=== PATIENT | female | born 1980 | race Caucasian/White ===

== ENCOUNTER 2018-12-22 14:58 | Outpatient (CLI) | payer OTHER | END 2018-12-22 23:59 | disposition home or self-care (01) | LOC: CVU 14:58 | PROVIDERS: ATTEND Family Medicine | DX: R07.89 Other chest pain (principal); R94.31 Abnormal electrocardiogram [ECG] [EKG]; R78.5 Finding of other psychotropic drug in blood; Q21.1 Atrial septal defect | CPT/HCPCS: 93306 ==

== ENCOUNTER 2019-05-04 10:09 | Emergency (ER) | payer OTHER ==
[~2019-05-04] VITALS: Ht 170.2 cm; Wt 95.1 kg
[2019-05-04] MEDS ORDERED: SODIUM CHLORIDE FLUSH 10ML SYR IVF ONE (10:30)
--- NOTE | 2019-05-04 10:43 | NUR ---
PT HERE WITH C/O LEFT SIDED BACK/FLANK PAIN. PT STATES HX KIDNEY STONES, PT TEARFUL AND STATES 10/10 PAIN. PT DRESSED IN GOWN AND ON MONITOR, PIV ESTABLISHED AND LABS DRAWN. PT EDUCATED ON NEED FOR UA. ROOM AIR, CALL LIGHT WITHIN REACH, AT BEDSIDE. MEDICAL STUDENT BEDSIDE FOR EXAM.
[2019-05-04 10:49] LABS: BASOPHILS # (AUTO) 0.07 x10^3/uL (0-0.1); BASOPHILS % (AUTO) 1 % (0-1); EOSINOPHILS # (AUTO) 0.15 x10^3/uL (0-0.4); EOSINOPHILS % (AUTO) 2 % (1-7); LYMPHOCYTES # (AUTO) 4.37 x10^3/uL (1-3.4); LYMPHOCYTES % (AUTO) 51 % (22-44); MD NO; MEAN CORPUSCULAR HEMOGLOBIN 27.8 pg (27.0-34.8); MEAN CORPUSCULAR HGB CONC 33.2 g/dL (32.4-35.8); MEAN CORPUSCULAR VOLUME 83.5 fL (80-100); MEAN PLATELET VOLUME 8.5 fL (7.4-10.4); MONOCYTES # (AUTO) 0.44 x10^3/uL (0.2-0.8); MONOCYTES % (AUTO) 5 % (2-9); NEUTROPHILS # (AUTO) 3.58 x10^3/uL (1.8-6.8); NEUTROPHILS % (AUTO) 42 % (42-75); PLATELET COUNT 362 x10^3/uL (130-400); RED BLOOD COUNT 5.54 x10^6/uL (3.82-5.3); RED CELL DISTRIBUTION WIDTH 13.6 % (9.6-15.2)
--- NOTE | 2019-05-04 10:55 | NUR ---
REPORT RECEIVED FROM KIKE ANDRADE.
[2019-05-04 11:00] LABS: ALANINE AMINOTRANSFERASE 45 U/L (12-78); ALBUMIN 3.9 g/dL (3.4-5.0); ANION GAP 11 mmol/L (5-15); CALCIUM 9.5 mg/dL (8.5-10.1); CHLORIDE 108 mmol/L (98-107); CREATININE 0.92 mg/dL (0.55-1.02)
[2019-05-04] MEDS ORDERED: ONDANSETRON 2MG/ML, 2ML IVPush ONE (11:00)
[2019-05-04] MEDS ORDERED: HYDROmorphone 1 MG/ML, 1ML INJ ONE ×2 (11:03→13:04)
[2019-05-04] MEDS ORDERED: ONDANSETRON 2MG/ML, 2ML ONE (11:03)
[2019-05-04 11:04] LABS: ALKALINE PHOSPHATASE 98 U/L (45-117); BILIRUBIN,TOTAL 0.6 mg/dL (0.2-1.0); TOTAL PROTEIN 8.8 g/dL (6.4-8.2)
--- NOTE | 2019-05-04 11:04 | NUR ---
REPORT GIVEN TO RAYMOND CONNELLY. CARE TRANSFERRED.
[2019-05-04] MEDS: HYDROmorphone 2 MG/ML, 1ML IVPush PRN ×2 (11:13→13:11)
--- NOTE | 2019-05-04 11:14 | NUR ---
PT AMBULATED TO THE BR W/ A STEADY GAIT. URINE COLLECTED AND SENT TO LAB. PT MEDICATED PER EMAR. VS UPDATED. PLACED ON O2 2L NC. FAMILY AT BEDSIDE. CALL LIGHT IN REACH. DENIES FURTHER NEEDS AT THIS TIME.
[2019-05-04 11:38] LABS: MICROSCOPIC NOT IND
[2019-05-04 11:44] LABS: CULTURE INDICATED? NO
--- NOTE | 2019-05-04 11:50 | NUR ---
PT BACK FROM CT. ALL TESTS RESULTED. STILL C/O PAIN. AWAITING RECHECK AT THIS TIME.
[2019-05-04] MEDS ORDERED: DIAZEPAM 5 MG/ML, 2ML IV ONE (12:30)
[2019-05-04] MEDS ORDERED: DIAZEPAM 5 MG/ML, 2ML ONE (12:32)
--- NOTE | 2019-05-04 12:39 | NUR ---
VS UPDATED. PT TEARFUL C/O 01/21 PAIN. PT MEDICATED PER EMAR. FAMILY AT BEDSIDE. CALL LIGHT IN REACH.
[2019-05-04] MEDS ORDERED: KETOROLAC 30 MG/1 ML IVPush ONE (13:00)
[2019-05-04] MEDS ORDERED: KETOROLAC 30 MG/1 ML ONE (13:04)
--- NOTE | 2019-05-04 13:12 | NUR ---
PT MEDICATED WITH ADDITIONAL PAIN MEDS. FAMILY AT BEDSIDE. CALL LIGHT WITHIN REACH. AWAITING RECHECK AND ORDERS BY MD AT THIS TIME
[2019-05-04 13:15] VITALS: BP 105/64
--- NOTE | 2019-05-04 13:23 | NUR ---
AT BEDSIDE FOR RECHECK AT THIS TIME
--- NOTE | 2019-05-04 14:24 | NUR ---
Patient given discharge instructions and they have confirmed that they understand the instructions. Patient ambulatory with steady gait.
== END 2019-05-04 14:15 | disposition home or self-care (01) ==
LOC: ED 14:10
DX: M54.5 Low back pain (principal); J45.909 Unspecified asthma, uncomplicated; Z90.710 Acquired absence of both cervix and uterus
CPT/HCPCS: 36415; 74176; 80053; 81003; 84703; 85025; 96374; 96375; 96376; 99284; J1170; J1885; J2405; J3360

== ENCOUNTER → 2019-06-02 | Outpatient (CLI) | payer OTHER ==
[~2019-06-02] MED LIST: REGADENOSON 0.4 MG/5 ML SYRINGE ONE
== END | disposition home or self-care (01) ==
LOC: CFH 12:21
PROVIDERS: ATTEND Internal Medicine Cardiovascular Disease
DX: R07.89 Other chest pain (principal); E78.00 Pure hypercholesterolemia, unspecified
CPT/HCPCS: 75571; 78452; 93017; A9502; J2785